=== PATIENT | female | born 1945 | race Caucasian/White ===

== ENCOUNTER 2017-11-03 07:50 | Emergency (ER) | payer MEDICARE, BC ==
[~2017-11-03] VITALS: Ht 165.1 cm; Wt 87.0 kg
[2017-11-03 07:51] VITALS: BP 197/91; PULSE 87; RESP 18; TEMP 98.8; O2SAT 97
--- NOTE | 2017-11-03 08:05 | PD ---
HPI Chief Complaint: Cold / Flu Symptoms Time Seen by Provider: 08:03 Travel History International Travel<30 days: No Contact w/Intl Traveler<30days: No Traveled to known affect area: No History of Present Illness HPI Patient presents with complaints of worsening cough. States she was evaluated on Saturday at urgent care and diagnosed with bronchitis. She was given Z-Curt prednisone and Tessalon Perles. Compliant with prescribed medications. Reports a and expiratory wheeze with her increased cough last night. Denies any nausea vomiting diarrhea or fever. No new rashes. No history of lung disease. No tobacco use. PFSH Past Medical History High Cholesterol: Yes GERD: Yes Hypertension: Yes Influenza Vaccination: Yes ?: Not Past Surgical History Cholecystectomy: Yes Social History Alcohol Use: Yes (OCC) Tobacco Use: No Substance Use: No Allergies-Medications (Allergen,Severity, Reaction): Coded Allergies: ciprofloxacin (Verified Adverse Reaction, Severe, vomiting, 11/03/17) Reported Meds & Prescriptions Reported Meds & Active Scripts Active Reported Alprazolam 0.25 Mg Tab 0.25 Mg PO Q6H PRN B12 (Cyanocobalamin) 1,000 Mcg Tab Ranitidine (Ranitidine HCl) 300 Mg Tab 300 Mg PO DAILY Atorvastatin (Atorvastatin Calcium) 20 Mg Tab 20 Mg PO HS Biotin 5 Mg Cap 5 Mg PO Zyrtec (Cetirizine HCl) 10 Mg Capsule Megared [place]-3 Krill Oil (Krill Oil) 500 Mg Cap Ferrous Gluconate 240 Mg (27 Mg Iron) Tab 240 Mg PO DAILY Vision Vitamins (Beta-Carotene(A)-Vits C,E/Mins) 1 Each Tablet Calcium 600 with Vitamin D (Calcium Carbonate-Cholecalciferol) 600-400 mg-Unit Tab 1 Tab PO DAILY Multiple Vitamin 1 Tab 1 Tab PO DAILY Nadolol 20 Mg Tab 20 Mg PO DAILY Pantoprazole (Pantoprazole Sodium) 40 Mg Tab 40 Mg PO DAILY Losartan (Losartan Potassium) 50 Mg Tab 50 Mg PO DAILY Review of Systems General / Constitutional: No: Fever Eyes: No: Visual changes HENT: No: Headaches Cardiovascular: No: Chest Pain or Discomfort Respiratory: Positive: Cough, No: Shortness of Breath Gastrointestinal: No: Abdominal Pain Genitourinary: No: Dysuria Musculoskeletal: No: Pain Skin: No Rash Neurologic: No: Weakness Psychiatric: No: Depression Endocrine: No: Polydipsia Hematologic/Lymphatic: No: Easy Bruising Physical Exam Narrative GENERAL: Well-nourished, well-developed patient. SKIN: Focused skin assessment warm/dry. HEAD: Normocephalic. EYES: No scleral icterus. No injection or drainage. NECK: Supple, trachea midline. No JVD or lymphadenopathy. CARDIOVASCULAR: Regular rate and rhythm without murmurs, gallops, or rubs. RESPIRATORY: Breath sounds equal bilaterally. No accessory muscle use. GASTROINTESTINAL: Abdomen soft, non-tender, nondistended. MUSCULOSKELETAL: No cyanosis, or edema. BACK: Nontender without obvious deformity. No CVA tenderness. Data Data Last Documented VS Vital Signs Date Time Temp Pulse Resp B/P (MAP) Pulse Ox O2 Delivery O2 Flow Rate FiO2 11/03/17 07:51 98.8 87 18 197/91 (126) 97 Orders Orders Influenzae A/B Antigen (11/03/17 08:03) [facility] Medical Decision Making Medical Screen Exam Complete: Yes Emergency Medical Condition: Yes Differential Diagnosis Bronchitis, influenza, pneumonia Narrative Course Assessment and plan discussed with patient at bedside. Influenza negative. Diagnosis Primary Impression: Bronchitis Patient Instructions: General Instructions Additional Instructions: Encouraged to continue steroid taper. Discussed continuation of antibiotics. Albuterol MDI for wheezing as needed. Cheratussin before meals for cough as needed. Encourage vitamin C and zinc to boost immune system. Follow-up with PCP. Return to the emergency with the onset of new symptoms. Med/Other Pt SpecificInfo: Prescription(s) given Scripts Albuterol 18 GM Inh (Ventolin Hfa 18 GM Inh) 90 Mcg/Act Aer 1 PUFF INH Q4H Y for SHORTNESS OF BREATH, #1 INHALER 0 Refills Prov: Jadon Preston MD 11/03/17 Guaifenesin-Codeine Liq (Cheratussin AC Liq) 100-10 Mg/5 Ml Syrp 10 ML PO Q4H Y for COUGH AND COLD SYMPTOMS, #120 ML 0 Refills Do not exceed 6 doses/24 hrs. Prov: Jadon Preston MD 11/03/17 Disposition: 01 DISCHARGE HOME Condition: Good Jadon Preston MD Nov 03, 2017 08:05
[2017-11-03] MEDS ORDERED: NADO20TA PO (08:12)
[2017-11-03] MEDS ORDERED: CETI10CA3 (08:12)
[2017-11-03] MEDS ORDERED: BIOTCAP PO (08:12)
[2017-11-03] MEDS ORDERED: MULTTAB67 PO (08:12)
[2017-11-03] MEDS ORDERED: RANI300T PO (08:12)
[2017-11-03] MEDS ORDERED: ATOR20TA15 PO (08:12)
[2017-11-03] MEDS ORDERED: LOSA50TA PO (08:12)
[2017-11-03] MEDS ORDERED: KRIL1CAP9 (08:12)
[2017-11-03] MEDS ORDERED: ALPR0.25 PO (08:12)
[2017-11-03] MEDS ORDERED: CYAN1TAB24 (08:12)
[2017-11-03] MEDS ORDERED: CALC1TAB87 PO (08:12)
[2017-11-03] MEDS ORDERED: PANT40TA3 PO (08:12)
[2017-11-03] MEDS ORDERED: BETA1TAB5 (08:12)
[2017-11-03] MEDS ORDERED: FERR240T PO (08:12)
[2017-11-03] MEDS ORDERED: CHERSYP2 PO (08:45)
[2017-11-03] MEDS ORDERED: VENTAER INH (08:45)
== END 2017-11-03 08:58 | disposition home or self-care (01) ==
LOC: PHED 07:50
DX: J40 Bronchitis, not specified as acute or chronic (principal); E78.00 Pure hypercholesterolemia, unspecified; K21.9 Gastro-esophageal reflux disease without esophagitis; I10 Essential (primary) hypertension; Z88.1 Allergy status to other antibiotic agents; Z79.899 Other long term (current) drug therapy
CPT/HCPCS: 87804; 99283

== ENCOUNTER 2017-11-07 07:35 | Emergency (ER) | payer MEDICARE, BC ==
[~2017-11-07] VITALS: Ht 165.1 cm; Wt 83.8 kg
[~2017-11-07 07:35] MED LIST: ALPR0.25 PO; ATOR20TA15 PO; BETA1TAB5; BIOTCAP PO; CALC1TAB87 PO; CETI10CA3; CHERSYP2 PO; CYAN1TAB24; FERR240T PO; KRIL1CAP9; LOSA50TA PO; MULTTAB67 PO; NADO20TA PO; PANT40TA3 PO; RANI300T PO; VENTAER INH
[2017-11-07 07:36] VITALS: BP 143/86; PULSE 76; RESP 16; TEMP 98.5; O2SAT 98
--- NOTE | 2017-11-07 07:58 | PD ---
HPI Chief Complaint: Cardiac Complaint Time Seen by Provider: 07:43 Travel History International Travel<30 days: No Contact w/Intl Traveler<30days: No Traveled to known affect area: No History of Present Illness HPI This is a 72-year-old female who presents for palpitations. She states that one week ago, she developed nasal congestion and cough. She has completed a course of azithromycin and prednisone. She states that the last 3 nights, she has had brief episodes of feeling like her heart is racing. No associated chest pain, diaphoresis or shortness of breath during these episodes. No lower extremity edema, calf pain. No fever, chills. She does continue to have the cough. She denies a history of palpitations. Symptoms are mild in severity. Onset gradual. No known alleviating or aggravating factors. She is not currently having any palpitations right now. Patient is able to exert herself without chest pain, shortness of breath or palpitations. They only occur at night. She initially wondered if this was due to anxiety. PFSH Past Medical History Cardiovascular Problems: Yes (htn on meds) High Cholesterol: Yes Diminished Hearing: No GERD: Yes Hypertension: Yes Influenza Vaccination: Yes ?: Not Past Surgical History Cholecystectomy: Yes Hysterectomy: Yes Social History Alcohol Use: Yes (OCC) Tobacco Use: No Substance Use: No Allergies-Medications (Allergen,Severity, Reaction): Coded Allergies: ciprofloxacin (Verified Adverse Reaction, Severe, vomiting, 11/07/17) Reported Meds & Prescriptions Reported Meds & Active Scripts Active Ventolin Hfa 18 GM Inh (Albuterol Sulfate) 90 Mcg/Act Aer 1 Puff INH Q4H PRN Cheratussin AC Liq (Guaifenesin-Codeine Liq) 100-10 Mg/5 Ml Syrp 10 Ml PO Q4H PRN Do not exceed 6 doses/24 hrs. Reported Alprazolam 0.25 Mg Tab 0.25 Mg PO Q6H PRN B12 (Cyanocobalamin) 1,000 Mcg Tab Ranitidine (Ranitidine HCl) 300 Mg Tab 300 Mg PO DAILY Atorvastatin (Atorvastatin Calcium) 20 Mg Tab 20 Mg PO HS Biotin 5 Mg Cap 5 Mg PO Zyrtec (Cetirizine HCl) 10 Mg Capsule Megared [place]-3 Krill Oil (Krill Oil) 500 Mg Cap Ferrous Gluconate 240 Mg (27 Mg Iron) Tab 240 Mg PO DAILY Vision Vitamins (Beta-Carotene(A)-Vits C,E/Mins) 1 Each Tablet Calcium 600 with Vitamin D (Calcium Carbonate-Cholecalciferol) 600-400 mg-Unit Tab 1 Tab PO DAILY Multiple Vitamin 1 Tab 1 Tab PO DAILY Nadolol 20 Mg Tab 20 Mg PO DAILY Pantoprazole (Pantoprazole Sodium) 40 Mg Tab 40 Mg PO DAILY Losartan (Losartan Potassium) 50 Mg Tab 50 Mg PO DAILY Review of Systems Except as stated in HPI: all other systems reviewed are Neg Physical Exam Narrative GENERAL: Alert, well nourished, well appearing patient resting on the bed in no acute distress. Vital Signs reviewed SKIN: Focused skin assessment warm/dry. HEAD: Atraumatic. Normocephalic. EYES: Pupils equal and round. No scleral icterus. No injection or drainage. ENT: No nasal bleeding or discharge. Mucous membranes pink and moist. NECK: Trachea midline. No JVD. Spontaneous, painless full range of motion with no meningismus CARDIOVASCULAR: Regular rate and rhythm. No murmur appreciated. Extremities warm and well perfused with bounding peripheral pulses RESPIRATORY: No accessory muscle use. Clear to auscultation. Breath sounds equal bilaterally. Breathing easily and speaking in full sentences GASTROINTESTINAL: Abdomen soft, non-tender, nondistended. Normal bowel sounds. No rigid, rebound, guarding MUSCULOSKELETAL: No obvious deformities. No clubbing. No cyanosis. No edema. Compartments are soft NEUROLOGICAL: Awake and alert. No obvious cranial nerve deficits. Motor grossly within normal limits. Normal speech. Sensation intact. Normal gait PSYCHIATRIC: Appropriate mood and affect; insight and judgment normal. Data Data Last Documented VS Vital Signs Date Time Temp Pulse Resp B/P (MAP) Pulse Ox O2 Delivery O2 Flow Rate FiO2 11/07/17 09:46 70 18 172/88 (116) 98 Room Air 11/07/17 07:36 98.5 Orders Orders Electrocardiogram (11/07/17 07:51) B-Type Natriuretic Peptide (11/07/17 07:51) Ckmb (Isoenzyme) Profile (11/07/17 07:51) Complete Blood Count With Diff (11/07/17 07:51) Comprehensive Metabolic Panel (11/07/17 07:51) Magnesium (Mg) (11/07/17 07:51) Prothrombin Time / Inr (Pt) (11/07/17 07:51) Act Partial Throm Time (Ptt) (11/07/17 07:51) Troponin I (11/07/17 07:51) Ecg Monitoring (11/07/17 07:51) Iv Access Insert/Monitor (11/07/17 07:51) Oximetry (11/07/17 07:51) Sodium Chloride 0.9% Flush (Ns Flush) (11/07/17 08:00) Chest, Pa & Lat (11/07/17 07:51) Sodium Chlorid 0.9% 500 Ml Inj (Ns 500 M (11/07/17 09:00) Ed Discharge Order (11/07/17 09:53) Labs Laboratory Tests Test 11/07/17 08:00 11/07/17 08:15 White Blood Count 10.6 TH/MM3 Red Blood Count 4.79 MIL/MM3 Hemoglobin 15.1 GM/DL Hematocrit 43.1 % Mean Corpuscular Volume 89.8 FL Mean Corpuscular Hemoglobin 31.6 PG Mean Corpuscular Hemoglobin Concent 35.2 % Red Cell Distribution Width 13.7 % Platelet Count 222 TH/MM3 Mean Platelet Volume 9.1 FL Neutrophils (%) (Auto) 66.6 % Lymphocytes (%) (Auto) 23.6 % Monocytes (%) (Auto) 6.1 % Eosinophils (%) (Auto) 2.8 % Basophils (%) (Auto) 0.9 % Neutrophils # (Auto) 7.1 TH/MM3 Lymphocytes # (Auto) 2.5 TH/MM3 Monocytes # (Auto) 0.6 TH/MM3 Eosinophils # (Auto) 0.3 TH/MM3 Basophils # (Auto) 0.1 TH/MM3 CBC Comment DIFF FINAL Differential Comment Prothrombin Time 10.9 SEC Prothromb Time International Ratio 1.1 RATIO Activated Partial Thromboplast Time 25.0 SEC B-Type Natriuretic Peptide 17 PG/ML Blood Urea Nitrogen 26 MG/DL Creatinine 1.20 MG/DL Random Glucose 108 MG/DL Total Protein 7.6 GM/DL Albumin 3.8 GM/DL Calcium Level 9.0 MG/DL Magnesium Level 2.4 MG/DL Alkaline Phosphatase 78 U/L Aspartate Amino Transf (AST/SGOT) 34 U/L Alanine Aminotransferase (ALT/SGPT) 53 U/L Total Bilirubin 1.6 MG/DL Sodium Level 139 MEQ/L Potassium Level 3.9 MEQ/L Chloride Level 106 MEQ/L Carbon Dioxide Level 23.8 MEQ/L Anion Gap 9 MEQ/L Estimat Glomerular Filtration Rate 44 ML/MIN Total Creatine Kinase 68 U/L Troponin I LESS THAN 0.02 NG/ML MDM Medical Decision Making Medical Screen Exam Complete: Yes Emergency Medical Condition: Yes Medical Record Reviewed: Yes Interpretation(s) EKG shows sinus rhythm with a rate of 66. No acute ST elevation. Normal intervals Last 24 hours Impressions Chest X-Ray 11/07/17 0751 Signed Impressions: Service Date/Time: November 08:27 - CONCLUSION: Normal examination. Small hiatal hernia. Pablito Escobar MD Laboratory Tests Test 11/07/17 08:00 11/07/17 08:15 White Blood Count 10.6 TH/MM3 Red Blood Count 4.79 MIL/MM3 Hemoglobin 15.1 GM/DL Hematocrit 43.1 % Mean Corpuscular Volume 89.8 FL Mean Corpuscular Hemoglobin 31.6 PG Mean Corpuscular Hemoglobin Concent 35.2 % Red Cell Distribution Width 13.7 % Platelet Count 222 TH/MM3 Mean Platelet Volume 9.1 FL Neutrophils (%) (Auto) 66.6 % Lymphocytes (%) (Auto) 23.6 % Monocytes (%) (Auto) 6.1 % Eosinophils (%) (Auto) 2.8 % Basophils (%) (Auto) 0.9 % Neutrophils # (Auto) 7.1 TH/MM3 Lymphocytes # (Auto) 2.5 TH/MM3 Monocytes # (Auto) 0.6 TH/MM3 Eosinophils # (Auto) 0.3 TH/MM3 Basophils # (Auto) 0.1 TH/MM3 CBC Comment DIFF FINAL Differential Comment Prothrombin Time 10.9 SEC Prothromb Time International Ratio 1.1 RATIO Activated Partial Thromboplast Time 25.0 SEC B-Type Natriuretic Peptide 17 PG/ML Blood Urea Nitrogen 26 MG/DL Creatinine 1.20 MG/DL Random Glucose 108 MG/DL Total Protein 7.6 GM/DL Albumin 3.8 GM/DL Calcium Level 9.0 MG/DL Magnesium Level 2.4 MG/DL Alkaline Phosphatase 78 U/L Aspartate Amino Transf (AST/SGOT) 34 U/L Alanine Aminotransferase (ALT/SGPT) 53 U/L Total Bilirubin 1.6 MG/DL Sodium Level 139 MEQ/L Potassium Level 3.9 MEQ/L Chloride Level 106 MEQ/L Carbon Dioxide Level 23.8 MEQ/L Anion Gap 9 MEQ/L Estimat Glomerular Filtration Rate 44 ML/MIN Total Creatine Kinase 68 U/L Troponin I LESS THAN 0.02 NG/ML Differential Diagnosis Bronchitis, pneumonia, medication reaction, PVCs, atrial fibrillation, electrolyte abnormalities, dehydration Narrative Course The patient was placed on a guest services. IV access was established. Labs, imaging were performed. Patient was given 500 cc normal saline bolus. Patient has been resting comfortably in the emergency department. She has had no palpitations while in the emergency department. She states that she has only had them at nighttime. She initially thought they were due to anxiety or 1 of the medications that she had been prescribed for her bronchitis. She is afebrile and is breathing easily with normal oxygen saturations on room air and clear lung sounds. Chest x-ray does not reveal pneumonia. She has already completed a Z-Curt and I do not feel further antibiotics would be helpful at this time. Patient has had no chest pain. I reviewed the results of the workup with the patient. I feel she is stable for discharge with supportive care and close outpatient follow-up. Patient understands the importance of close outpatient follow-up. She understands she may require further testing and treatment as an outpatient. She understands strict return indications. She is comfortable with this plan and eager to go home. Diagnosis Primary Impression: Acute bronchitis Qualified Codes: J20.9 - Acute bronchitis, unspecified Additional Impression: Palpitations Referrals: Primary Care Physician 3 days Patient Instructions: Acute Bronchitis (DC), General Instructions, Heart Palpitations (DC) Additional Instructions: Drink plenty of fluids to stay well hydrated. No alcohol or caffeine. Monitor your heart rate closely. Follow-up with primary physician within 1-4 days. Call today to set this up. You may require further testing and treatment as an outpatient. Return with worsening symptoms. Med/Other Pt SpecificInfo: No Change to Meds Disposition: 01 DISCHARGE HOME Condition: Stable Mandy Gu MD Nov 07, 2017 07:58
[2017-11-07] MEDS ORDERED: SODIUM CHLORIDE 0.9% FLUSH 10 ML FLUSH IVF PRN (08:00)
[2017-11-07 08:01] VITALS: BP 190/101; PULSE 72; RESP 18; O2SAT 98
[2017-11-07 08:03] LABS: AUTOMATED NEUTROPHIL # 7.1 TH/MM3 (1.8-7.7); BASOPHIL # 0.1 TH/MM3 (0-0.2); BASOPHIL % 0.9 % (0.0-2.0); EOSINOPHIL # 0.3 TH/MM3 (0-0.4); EOSINOPHIL % 2.8 % (0.0-4.0); HEMATOCRIT 43.1 % (35.0-46.0); HEMOGLOBIN 15.1 GM/DL (11.6-15.3); LYMPH % 23.6 % (9.0-44.0); LYMPHOCYTE # 2.5 TH/MM3 (1.0-4.8); MEAN CELL VOLUME 89.8 FL (80.0-100.0); MEAN CORPUSCULAR HEMOGLOBIN 31.6 PG (27.0-34.0); MEAN CORPUSCULAR HGB CONC 35.2 % (32.0-36.0); MEAN PLATELET VOLUME 9.1 FL (7.0-11.0); MONO % 6.1 % (0.0-8.0); MONOCYTE # 0.6 TH/MM3 (0-0.9); NEUT % 66.6 % (16.0-70.0); PLATELET COUNT 222 TH/MM3 (150-450); RED BLOOD COUNT 4.79 MIL/MM3 (4.00-5.30); RED CELL DISTRIBUTION WIDTH 13.7 % (11.6-17.2); WHITE BLOOD COUNT 10.6 TH/MM3 (4.0-11.0)
[2017-11-07 08:15] LABS: INTERNATIONAL NORMALIZED RATIO 1.1 RATIO; PROTHROMBIN TIME - PATIENT 10.9 SEC (9.8-11.6)
[2017-11-07 08:31] LABS: CHLORIDE 106 MEQ/L (98-107); SODIUM (NA) 139 MEQ/L (136-145)
[2017-11-07 08:43] LABS: ALBUMIN 3.8 GM/DL (3.4-5.0); BICARBONATE 23.8 MEQ/L (21.0-32.0); BLOOD UREA NITROGEN 26 MG/DL (7-18); GLUCOSE,RANDOM 108 MG/DL (74-106); MAGNESIUM 2.4 MG/DL (1.5-2.5)
[2017-11-07 08:44] VITALS: BP 153/83; PULSE 68; RESP 18; O2SAT 97
[2017-11-07 08:46] LABS: ALT (GPT) 53 U/L (10-53); AST (GOT) 34 U/L (15-37); GLOMERULAR FILTRATION RATE 44 ML/MIN (>89)
[2017-11-07 08:48] LABS: TOTAL BILIRUBIN ADULT 1.6 MG/DL (0.2-1.0); TOTAL PROTEIN 7.6 GM/DL (6.4-8.2)
[2017-11-07 08:49] LABS: ALKALINE PHOSPHATASE 78 U/L (45-117)
[2017-11-07 08:51] LABS: TROPONIN I LESS THAN 0.02 NG/ML (0.02-0.05)
--- NOTE | 2017-11-07 08:56 | RADRPT ---
EXAM DATE/TIME: 11/07/2017 08:27 [facility] COMPARISON: No previous studies available for comparison. INDICATIONS : Cough x 1 week. Heart palpitations. MEDICAL HISTORY : Gastroesophageal reflux disease. Hypertension SURGICAL HISTORY : Cholecystectomy. Hysterectomy. ENCOUNTER: Initial ACUITY: 1 week PAIN SCORE: 0/10 LOCATION: Bilateral chest FINDINGS: PA and lateral views of the chest demonstrate the lungs to be symmetrically aerated without evidence of mass, infiltrate or effusion. The cardiomediastinal contours are unremarkable. Osseous structure s are intact. Cholecystectomy clips. CONCLUSION: Normal examination. Small hiatal hernia. Pablito Escobar MD on November 07, 2017 at 8:53 Board Certified Radiologist. This report was verified electronically.
[2017-11-07] MEDS ORDERED: SODIUM CHLORID 0.9% 500 ML INJ 500 ML IV ONE (09:00)
[2017-11-07 09:46] VITALS: BP 172/88; PULSE 70; RESP 18; O2SAT 98
--- NOTE | 2017-11-08 08:52 | EKG ---
Date Performed: 11/07/2017 Time Performed: 07:58:58 PTAGE: 72 years EKG: Sinus rhythm POSSIBLE LEFT ATRIAL ENLARGEMENT BORDERLINE ECG NO PREVIOUS TRACING DOCTOR: Mery Leyva Interpretating Date/Time 11/08/2017 08:51:23
== END 2017-11-07 10:16 | disposition home or self-care (01) ==
LOC: PHED 07:35
DX: J20.9 Acute bronchitis, unspecified (principal); R00.2 Palpitations; R94.31 Abnormal electrocardiogram [ECG] [EKG]; I10 Essential (primary) hypertension; E78.00 Pure hypercholesterolemia, unspecified; Z88.1 Allergy status to other antibiotic agents
CPT/HCPCS: 71046; 80053; 82550; 83735; 83880; 84484; 85025; 85610; 85730; 93005; 96360; 99285; J7040